=== PATIENT | male | born 1985 | race Caucasian/White ===

== ENCOUNTER 2021-01-17 08:49 | Emergency (ER) | payer MEDICAID ==
[~2021-01-17] VITALS: Ht 177.8 cm; Wt 97.0 kg
[2021-01-17 09:34] LABS: BASOPHILS % 0.4 % (0.0-2.0); EOSINOPHILS % 1.1 % (0.0-5.0); HEMATOCRIT. 41.4 % (42.0-52.0); HEMOGLOBIN. 14.7 g/dL (14.0-18.0); LYMPHOCYTES % 38.7 % (20.0-50.0); MEAN CORPUSCULAR HEMOGLOBIN 31.2 pg (28.0-32.0); MEAN CORPUSCULAR VOLUME 87.6 fL (80.0-94.0); MEAN PLATELET VOLUME 6.8 fl (7.4-10.4); MONOCYTES % 6.3 % (2.0-8.0); NEUTROPHILS % 53.5 % (40.0-76.0); PLATELET 207 x1000/uL (130-400); RED BLOOD CELL COUNT 4.72 mill/uL (4.7-6.1); RED CELL DISTRIBUTION WIDTH 13.1 % (11.6-14.6)
[2021-01-17 09:42] LABS: CHLORIDE 106 mEq/L (98-107)
[2021-01-17 10:01] LABS: ETHANOL BLOOD 525 mg/dL
[2021-01-17 11:30] VITALS: BP 106/71
== END 2021-01-17 11:33 | disposition home or self-care (01) ==
LOC: ER 08:49
DX: F10.229 Alcohol dependence with intoxication, unspecified (principal); Y90.8 Blood alcohol level of 240 mg/100 ml or more
CPT/HCPCS: 36415; 80053; 80320; 85025; 99283; G0480